=== PATIENT | female | born 1990 | race Hispanic/Latino ===

== ENCOUNTER 2020-09-21 00:36 | Emergency (ER) | payer BC ==
[2020-09-21] MEDS ORDERED: HYDROXYZINE HCL 25 MG TABLET ONE (01:52)
[2020-09-21] MEDS ORDERED: KETOROLAC TROMETHAMINE 60 MG/2 ML VIAL ONE (01:52)
[2020-09-21 02:34] LABS: APPEARANCE,URINE Clear (CLEAR); BILIRUBIN,URINE Negative (NEGATIVE); COLOR,URINE Yellow (YELLOW); GLUCOSE, URINE (UA) Negative (NEGATIVE); KETONES,URINE Negative (NEGATIVE); LEUKOCYTE ESTERASE ,URINE Negative (NEGATIVE); NITRATE,URINE Negative (NEGATIVE); OCCULT BLOOD,URINE Negative (NEGATIVE); PH,URINE 5.5 (5.0-8.0); PROTEIN,URINE Negative (NEGATIVE); UROBILINOGEN,URINE 0.2 mg/dL (0.2-1.0)
[2020-09-21 02:35] LABS: HCG,QUAL RESULT NEGATIVE (NEGATIVE)
[2020-09-21] MEDS ORDERED: HYDROCODONE/ACETAMINOPHEN 10/325 MG TAB ONE (03:07)
== END 2020-09-21 03:16 | disposition home or self-care (01) ==
LOC: EDH 00:36
DX: T63.391A Toxic effect of venom of other spider, accidental (unintentional), initial encounter (principal); F45.8 Other somatoform disorders; F41.9 Anxiety disorder, unspecified; Y92.89 Other specified places as the place of occurrence of the external cause
CPT/HCPCS: 81003; 81025; 96372; 99284; J1885